=== PATIENT | female | born 1945 | race Hispanic/Latino ===

== ENCOUNTER 2024-04-27 08:00 | Outpatient (CLI) | payer OTHER, MEDICAID | END 2024-04-27 08:01 | disposition home or self-care (01) | LOC: BICCT 08:00 | PROVIDERS: ATTEND Student in an Organized Health Care Education/Training Program | DX: R10.33 Periumbilical pain (principal); K76.0 Fatty (change of) liver, not elsewhere classified; Z90.49 Acquired absence of other specified parts of digestive tract | CPT/HCPCS: 74177; 82565 ==

== ENCOUNTER 2024-06-01 14:04 | Outpatient (CLI) | payer OTHER, MEDICAID | END 2024-06-01 14:05 | disposition home or self-care (01) | LOC: RAD 14:04 | PROVIDERS: ATTEND Internal Medicine | DX: R06.00 Dyspnea, unspecified (principal); J98.4 Other disorders of lung | CPT/HCPCS: 71046 ==

== ENCOUNTER 2024-08-24 14:00 | Outpatient (CLI) | payer OTHER, MEDICAID | END 2024-08-24 14:01 | disposition home or self-care (01) | LOC: RAD 14:00 | PROVIDERS: ATTEND Internal Medicine | DX: R06.00 Dyspnea, unspecified (principal) | CPT/HCPCS: 71046 ==